=== PATIENT | female | born 1980 | race Hispanic/Latino ===

== ENCOUNTER 2024-11-02 04:52 | Emergency (ER) | payer SELFPAY ==
[~2024-11-02] VITALS: Ht 154.9 cm; Wt 81.2 kg
--- NOTE | 2024-11-02 05:06 | ERN ---
General Chief Complaint: Multiple Complaints Stated Complaint: C/O LOWER BACK PAIN,SHOULDER PAIN, WEAKNESS Time Seen by MD: 05:05 History of Present Illness Initial Comments Patient is a 44-year-old female with low back pain shoulder pain weakness and left arm coolness. She also states that she is just feeling of overall weakness. She has never had these symptoms before and finding them alarming has come to the emergency room for further evaluation. She does not have any other symptoms such as fever chills nausea vomiting or diarrhea. She also states no dysuria or burning and itching when urinating. Allergies: Coded Allergies: No Known Allergies (Unverified Allergy, Unknown, 11/02/24) Past Medical History Past Medical History: Asthma Past Surgical History: Other Surgical History Other: TUBAL LIGATION Female( History) LMP: Oct 24, 2024 Constitutional: (-) chills, (-) diaphoresis, (-) fever, (-) malaise, (-) weakness, (-) other documentation EENTM: (-) eye pain, (-) blurred vision, (-) tearing, (-) double vision, (-) ear pain, (-) ear discharge, (-) nose pain, (-) nose congestion, (-) throat pain, (-) Throat swelling, (-) mouth pain, (-) tooth pain, (-) mouth swelling, (-) other documentation Respiratory: (-) cough, (-) orthopnea, (-) short of breath, (-) stridor, (-) wheezing, (-) other documentation Cardiovascular: (-) chest pain, (-) edema, (-) palpitations, (-) syncope, (-) dyspnea on exertion, (-) other documentation Gastrointestinal/Abdominal: (-) nausea, (-) vomiting, (-) diarrhea, (-) abdominal pain, (-) abdominal distention, (-) constipation, (-) rectal bleeding, (-) dark stool/melena, (-) other documentation Musculoskeletal: (+) Neck pain, (+) back pain Skin: (-) laceration, (-) contusion, (-) abrasion, (-) abscess, (-) rash, (-) change in color, (-) change in hair, (-) change in nails, (-) diaphoresis, (-) dryness, (-) other documentation Physical Exam General Appearance: (+) mild distress Orientation: (+) alert, (+) oriented x 3 Head/Face Trauma: No Eye: bilateral eye normal inspection, bilateral eye PERRL, bilateral eye EOMI Ear, Nose, Throat: (+) hearing grossly normal, (+) normal ENT inspection Neck: (+) normal inspection, (+) supple Respiratory: (+) chest non-tender, (+) lungs clear, (+) well ventilated Heart: (+) regular, (+) no gallop Vascular: (+) no edema, (+) normal peripheral pulse Gastrointestinal: (+) soft, (+) non-tender, (+) bowel sound present Results Laboratory and Microbiology Lab and Micro Result Laboratory Tests Test 11/02/24 05:12 11/02/24 05:30 White Blood Count 6.9 K/uL (4.8-10.8) Red Blood Count 4.01 MIL/uL (4.00-5.50) Hemoglobin 11.2 g/dL (12.0-16.0) L Hematocrit 34.1 % (36-48) L Mean Corpuscular Volume 85.0 fL (79-99) Mean Corpuscular Hemoglobin 27.9 pg (27.0-33.0) Mean Corpuscular Hemoglobin Concent 32.8 g/dL (32.0-36.0) Red Cell Distribution Width 14.3 % (11.0-15.5) Platelet Count 311 K/uL (130-400) Mean Platelet Volume 10.3 fL (7.5-10.5) Immature Granulocyte % (Auto) 0.3 % (0-1) Neutrophils (%) (Auto) 53.0 % (40.0-77.0) Lymphocytes (%) (Auto) 35.1 % (21.0-51.0) Monocytes (%) (Auto) 7.8 % (3.0-13.0) Eosinophils (%) (Auto) 3.2 % (0.0-8.0) Basophils (%) (Auto) 0.6 % (0.0-5.0) Neutrophils # (Auto) 3.7 K/uL (1.8-7.7) Lymphocytes # (Auto) 2.4 K/uL (1.0-4.8) Monocytes # (Auto) 0.5 K/uL (0.1-1.0) Eosinophils # (Auto) 0.22 K/uL (0.00-0.70) Basophils # (Auto) 0.04 K/uL (0.00-0.20) Absolute Immature Granulocyte (auto 0.02 K/uL (0-1) Nucleated Red Blood Cells 0.0 % (0.0-0.19) Sodium Level 137 mmol/L (136-145) Potassium Level 3.7 mmol/L (3.5-5.1) Chloride Level 103 mmol/L (101-111) Carbon Dioxide Level 25 mmol/L (21-32) Blood Urea Nitrogen 10 mg/dL (7-18) Creatinine 0.7 mg/dL (0.5-1.0) Glomerular Filtration Rate Calc 110 mL/min (>90) Random Glucose 104 mg/dL (70-105) Total Calcium 8.4 mg/dL (8.5-10.1) L Urine Color LIGHT-YELLOW (YELLOW) Urine Appearance CLEAR (CLEAR) Urine pH 6.0 (5.0-8.0) Urine Specific [place] 1.015 (1.001-1.031) Urine Protein NEGATIVE mg/dL (NEGATIVE) Urine Glucose (UA) NEGATIVE mg/dL (NEGATIVE) Urine Ketones NEGATIVE mg/dL (NEGATIVE) Urine Occult Blood NEGATIVE (NEGATIVE) Urine Nitrate NEGATIVE (NEGATIVE) Urine Bilirubin NEGATIVE mg/dL (NEGATIVE) Urine Urobilinogen 0.2 mg/dL (0.2-1.0) Urine Leukocyte Esterase NEGATIVE Whitley/uL Urine HCG, Qualitative NEGATIVE (NEGATIVE) MDM Patient's symptom complex is unusual it could be: Fibromyalgia anxiety hyperventilation syndrome dehydration complex regional pain syndrome electrolyte abnormality. MDM: Differential diagnosis: Rationale: Tests considered and ordered secondary to shared decision making include: Previous outside records reviewed: Old ER visits. Risk of complication and/or morbidity or mortality of patient management: None Medications-Per medication reconciliation Need for hospitalization: Patient does meet criteria for hospitalization. Need for emergency major/minor surgery: No There are no social concerns with this patient. Prescription drug management Prescriptions will include symptomatic care Patient's prior external medical records from other ER visits were reviewed by me as indicated. Prior testing and results from previous visits were reviewed. Prior tests were taken into account with medical decision making and resource utilization, independent historian/historians were used to obtain complete medical history. I independently interpreted the test that were performed, results were reviewed by me and considered findings on radiology if ordered. Patient's laboratory studies are normal she feels much better with a single bolus of LR and would like to go home. ED Course Orders Procedure Category Date Status Time Cbc With Differential LAB 11/02/24 Complete 05:13 Basic Metabolic Panel LAB 11/02/24 Complete 05:13 Lactated Ringers PHA 11/02/24 Complete 1000ml (Lactated 05:27 Urinalysis Profile LAB 11/02/24 Complete 05:27 ,Urine Test LAB 11/02/24 Complete 05:27 Triamcinolone Acet PHA 11/02/24 Complete 40mg/Ml 1ml (Kenalog 06:00 Orphenadrine Citrate PHA 11/02/24 Complete (Norflex) 06:00 Current Medications Medications (Trade) Dose Ordered Sig/Jhon Route PRN Reason Start Time Stop Time Status Last Admin Dose Admin Lactated Ringer's (Lactated Ringers 1000ml) 1,000 ml BOLUS STAT IV 11/02/24 05:27 11/02/24 05:31 DC 11/02/24 05:35 Orphenadrine Citrate (Norflex) 60 mg ONCE ONCE IM 11/02/24 06:00 11/02/24 06:01 DC 11/02/24 05:56 Triamcinolone Acetonide (Kenalog 40) 40 mg ONCE ONCE IM 11/02/24 06:00 11/02/24 06:01 DC Vital Signs Date Time Temp Pulse Resp B/P (MAP) Pulse Ox O2 Delivery O2 Flow Rate FiO2 11/02/24 05:15 98.4 76 18 145/79 99 Room Air* 0 21 11/02/24 04:54 97.0 80 20 136/75 100 Room Air DX & DISP Disposition: Discharge Departure Impression: Primary Impression: Dehydration Condition: Stable Referrals: SELF,REFERRAL (PCP) It appears you are dehydrated is all your lab studies are normal and you feel much better after a bolus of a L of fluid. Staying hydrated is hard the best way fluid each day that your urine runs clear at least once. RON WISE MD Nov 02, 2024 05:06
[2024-11-02 05:15] VITALS: BP 145/79; PULSE 76; RESP 18; TEMP 98.5; O2SAT 99
[2024-11-02 05:20] LABS: IMMATURE GRANULOCYTE ABSOLUTE 0.02 K/uL (0-1); NUCLEATED RED BLOOD CELLS 0.0 % (0.0-0.19); PLATELET COUNT (AUTO) 311 K/uL (130-400); RED BLOOD CELL COUNT(AUTO) 4.01 MIL/uL (4.00-5.50); RED CELL DISTRIBUTION WIDTH 14.3 % (11.0-15.5); WHITE BLOOD COUNT (AUTO) 6.9 K/uL (4.8-10.8)
[2024-11-02 05:31] LABS: CREATININE 0.7 mg/dL (0.5-1.0); GLOMERULAR FILTR. RATE CALC 110.0 mL/min (>90); GLUCOSE,RANDOM 104.0 mg/dL (70-105); SODIUM SERUM 137.0 mmol/L (136-145); UREA NITROGEN, BLOOD 10.0 mg/dL (7-18)
[2024-11-02] MEDS: LACTATED RINGERS 1000ML IV STA (05:35)
[2024-11-02 05:44] LABS: APPEARANCE,URINE CLEAR (CLEAR); GLUCOSE, URINE (UA) NEGATIVE (NEGATIVE); LEUKOCYTE ESTERASE ,URINE NEGATIVE Leu/uL (NEGATIVE); NITRATE,URINE NEGATIVE (NEGATIVE); OCCULT BLOOD,URINE NEGATIVE (NEGATIVE)
[2024-11-02 05:45] LABS: ADD UA MICROSCOPIC NO
[2024-11-02 05:46] LABS: HCG,QUALITATIVE URINE NEGATIVE (NEGATIVE)
[2024-11-02] MEDS: ORPHENADRINE 60MG/2ML IM ONE (05:56)
[2024-11-02] MEDS: TRIAMCINOLONE ACETONIDE 40 MG/ML 1ML VIAL IM ONE (06:37)
== END 2024-11-02 06:57 | disposition home or self-care (01) ==
LOC: EDH 04:52
DX: E86.0 Dehydration (principal); J45.909 Unspecified asthma, uncomplicated; Z98.51 Tubal ligation status
CPT/HCPCS: 36415; 80048; 81003; 81025; 85025; 96372; 99283; J2360